=== PATIENT | male | born 1995 | race Caucasian/White ===

== ENCOUNTER 2021-11-30 10:57 | Outpatient (RCR) | payer OTHER ==
[~2021-11-30 10:57] MED LIST: LOMOTIL 0.025 M1 TAB PO; NO HOME MEDICATIONS; PHENERGAN 25 TA25 MG PO
== END 2021-12-06 ==
LOC: WSOH
DX: S39.012A Strain of muscle, fascia and tendon of lower back, initial encounter (principal); Y99.0 Civilian activity done for income or pay